=== PATIENT | female | born 1975 | race Caucasian/White ===

== ENCOUNTER 2017-04-14 07:05 | Emergency (ER) | payer OTHER ==
[~2017-04-14] VITALS: Ht 167.6 cm; Wt 70.3 kg
[2017-04-14 07:11] VITALS: BP 119/65
[2017-04-14] MEDS ORDERED: IBUPROFEN 600 MG TABLET PO ONE ×2 (07:24→07:30)
== END 2017-04-14 08:01 | disposition home or self-care (01) ==
LOC: ER 07:08
DX: S96.912A Strain of unspecified muscle and tendon at ankle and foot level, left foot, initial encounter (principal); X58.XXXA Exposure to other specified factors, initial encounter; Y92.89 Other specified places as the place of occurrence of the external cause; Y93.89 Activity, other specified; Y99.8 Other external cause status
CPT/HCPCS: 73630; 99284; A4606; Z7610

== ENCOUNTER 2020-06-22 18:40 | Emergency (ER) | payer MEDICAID, OTHER ==
[~2020-06-22] VITALS: Ht 167.6 cm; Wt 68.0 kg
--- NOTE | 2020-06-22 18:45 | NUR ---
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 VS CHECKED. PLACED ON SEIZURE PRECAUTIONS. SEEN BY DR. HARGROVE
--- NOTE | 2020-06-22 18:50 | NUR ---
IV ACCESS STARTED. BLOOD DRAW DONE. SENT TO LAB.
[2020-06-22] MEDS ORDERED: LORAZEPAM INJ 2 MG/ML VIAL ONE ×2 (18:57→20:37)
[2020-06-22] MEDS ORDERED: LORAZEPAM INJ 2 MG/ML VIAL IVP ONE (19:00)
--- NOTE | 2020-06-22 19:04 | NUR ---
pt stated she is unable to provide urine specimen at the moment. pt was given water to drink. will attempt to recollected later.
[2020-06-22 19:19] LABS: BASOPHILS % (AUTO) 0.1 % (0.0-2.0); EOSINOPHILS % (AUTO) 0.1 % (0.0-6.0); HEMATOCRIT 36 % (33-45); HEMOGLOBIN 11.2 g/dL (11.5-14.8); LYMPHOCYTES # (AUTO) 0.8 /CMM (0.8-4.8); MEAN CORPUSCULAR HGB CONC 31 g/dl (31.0-36.0); MEAN CORPUSCULAR VOLUME 85 fL (82-100); MONOCYTES # (AUTO) 1.2 /CMM (0.1-1.30); MONOCYTES % (AUTO) 14.1 % (2.0-12.0); NEUTROPHILS # (AUTO) 6.3 /CMM (1.8-8.9); NEUTROPHILS % (AUTO) 75.7 % (43.0-81.0); PLATELET COUNT (AUTO) 149 /CMM (150-450); RED BLOOD CELL COUNT(AUTO) 4.25 MIL/uL (4.0-5.2); WHITE BLOOD COUNT (AUTO) 8.3 K/uL (4.3-11.0)
[2020-06-22 19:22] LABS: CALCIUM, SERUM 9.2 mg/dL (8.5-10.1); CARBON DIOXIDE 16 mmol/L (21-32); CHLORIDE 97 mmol/L (98-107); CREATININE 1.3 mg/dL (0.6-1.3); GLUCOSE 160 mg/dL (74-106); POTASSIUM 3.2 mmol/L (3.5-5.1); SODIUM SERUM 138 mmol/L (136-145); UREA NITROGEN, BLOOD 3 mg/dL (7-18)
--- NOTE | 2020-06-22 19:30 | NUR ---
DR. HARGROVE SPEAKING WITH FAMILY ON THE PHONE REGARDING PLAN OF CARE
[2020-06-22 19:36] LABS: ALANINE AMINOTRANSFERASE 76 U/L (12-78); ALBUMIN 3.8 g/dL (3.4-5.0); ALCOHOL, BLOOD < 3 mg/dL (0-0); ALKALINE PHOSPHATASE 72 U/L (46-116); ASPARTATE AMINOTRANSFERASE 136 U/L (15-37); BILIRUBIN,DIRECT 0.3 mg/dL (0.0-0.2); BILIRUBIN,TOTAL 0.8 mg/dL (0.2-1.0)
--- NOTE | 2020-06-22 19:44 | NUR ---
PT BROUGHT BY RADIOLOGY TO CT
--- NOTE | 2020-06-22 19:55 | NUR ---
BROUGHT BACK FROM CT
[2020-06-22] MEDS ORDERED: IV NS 0.9% 1,000 ML IV ONE (20:00)
--- NOTE | 2020-06-22 20:50 | NUR ---
Patient discharged to home in stable condition. Written and verbal after care instructions given. Patient verbalizes understanding of instruction.
--- NOTE | 2020-06-22 20:50 | NUR ---
IV removed. Catheter intact and site benign. Pressure and 4x4 applied to site. No bleeding noted.
[2020-06-22 20:51] VITALS: BP 128/74
--- NOTE | 2020-06-22 20:51 | NUR ---
PATIENT IS PICKED UP BY [facility].
[2020-06-22] MEDS ORDERED: LORAZEPAM INJ 2 MG/ML VIAL IV ONE (21:00)
== END 2020-06-22 20:52 | disposition home or self-care (01) ==
LOC: ER 18:46
DX: F10.239 Alcohol dependence with withdrawal, unspecified (principal); R56.9 Unspecified convulsions; Y90.0 Blood alcohol level of less than 20 mg/100 ml
CPT/HCPCS: 36415; 70450; 80048; 80076; 80320; 84702; 85025; 96361; 96374; 96376; 99284; J2060 ×2; G0480